=== PATIENT | male | born 1985 | race Caucasian/White ===

== ENCOUNTER 2021-09-07 11:18 | Outpatient (RCR) | payer OTHER ==
[~2021-09-07 11:18] MED LIST: NO HOME MEDICATIONS
== END 2021-09-10 | disposition home or self-care (01) ==
LOC: WSOH
DX: S80.02XA Contusion of left knee, initial encounter (principal); Y99.0 Civilian activity done for income or pay

== ENCOUNTER 2021-09-28 13:56 | Outpatient (RCR) | payer OTHER | END 2021-09-28 14:49 | disposition home or self-care (01) | LOC: WSOH 13:56 | DX: S80.02XD Contusion of left knee, subsequent encounter (principal); Y99.0 Civilian activity done for income or pay ==